=== PATIENT | male | born 1965 | race Caucasian/White ===

== ENCOUNTER 2022-10-27 19:24 | Emergency (ER) | payer MEDICARE, OTHER ==
[~2022-10-27] VITALS: Ht 200.7 cm; Wt 88.9 kg
--- NOTE | 2022-10-27 19:42 | NUR ---
BIBRA 7 FOR C/O CP X 7 DAYS. HX USING METH. PT A/OX3. TOLERATING R/A WELL WITH NO RESP DISTRESS. CONNECTED PT TO POX AND MONITOR. SAFETY MEASURES IN PLACE.
--- NOTE | 2022-10-27 20:07 | NUR ---
GARDENER FLORIST AT PT'S BEDSIDE
--- NOTE | 2022-10-27 20:18 | NUR ---
lab at bedside
--- NOTE | 2022-10-27 20:30 | NUR ---
PT REFUSED BLOOD DRAW
--- NOTE | 2022-10-27 21:13 | NUR ---
HOT METAL MIXER OPERATOR HELPER AT PT'S BEDSIDE
[2022-10-27 21:25] LABS: BASOPHILS % (AUTO) 0.3 % (0.0-2.0); EOSINOPHILS % (AUTO) 2.3 % (0.0-6.0); HEMATOCRIT 40 % (39-51); HEMOGLOBIN 11.6 g/dL (13.5-17.5); LYMPHOCYTES # (AUTO) 0.9 K/uL (0.8-4.8); LYMPHOCYTES % (AUTO) 11.2 % (20.0-44.0); MEAN CORPUSCULAR HGB CONC 29 g/dl (31.0-36.0); MEAN CORPUSCULAR VOLUME 69 fL (80-96); MONOCYTES # (AUTO) 0.6 K/uL (0.1-1.30); MONOCYTES % (AUTO) 7.6 % (2.0-12.0); NEUTROPHILS # (AUTO) 6.5 K/uL (1.8-8.9); NEUTROPHILS % (AUTO) 78.6 % (43.0-81.0); PLATELET COUNT (AUTO) 235 K/uL (150-450); WHITE BLOOD COUNT (AUTO) 8.3 K/uL (4.3-11.0)
[2022-10-27] MEDS ORDERED: FUROSEMIDE 40 MG/4 ML VIAL IV ONE (21:30)
[2022-10-27] MEDS ORDERED: ASPIRIN 325 MG TABLET PO ONE (21:30)
--- NOTE | 2022-10-27 21:31 | NUR ---
PT REFUSED IV ACCESS AND LASIX; DR NIYAH LOPEZ AWARE
[2022-10-27 21:33] LABS: CALCIUM, SERUM 8.5 mg/dL (8.5-10.1); CARBON DIOXIDE 30 mmol/L (21-32); CHLORIDE 107 mmol/L (98-107); GLUCOSE 85 mg/dL (74-106); SODIUM SERUM 140 mmol/L (136-145); UREA NITROGEN, BLOOD 13 mg/dL (7-18)
[2022-10-27] MEDS ORDERED: FUROSEMIDE 40 MG/4 ML VIAL ONE (21:42)
[2022-10-27] MEDS ORDERED: ASPIRIN 325 MG TABLET ONE (21:42)
[2022-10-27 22:53] LABS: LYMPHOCYTES % (MANUAL) 28 % (16-48); MONOCYTES % (MANUAL) 8 % (0-11.0); NEUTROPHILS % (MANUAL) 64 (42-76)
[2022-10-28] MEDS ORDERED: MORPHINE SULFATE INJ 2 MG/ML DISP.SYRIN IV PRN (01:00)
[2022-10-28] MEDS ORDERED: ONDANSETRON HCL/PF 4 MG/2 ML VIAL IVP PRN (01:00)
[2022-10-28] MEDS ORDERED: TEMAZEPAM 15 MG CAPSULE PO PRN (01:00)
[2022-10-28] MEDS ORDERED: ACETAMINOPHEN 325 MG TABLET PO PRN (01:00)
[2022-10-28] MEDS ORDERED: Z GUARD REMEDY 4 OZ OINT TP PRN (01:00)
[2022-10-28] MEDS ORDERED: HYDROCODONE/APAP 5/325MG TABLET PO PRN (01:00)
[2022-10-28] MEDS ORDERED: ENOXAPARIN SODIUM 40 MG/0.4 ML DISP.SYRIN SQ SCH (01:00)
[2022-10-28] MEDS ORDERED: MAG HYDROX/AL HYDROX/SIMETH 30 ML UDC PO PRN (01:00)
[2022-10-28] MEDS ORDERED: MAGNESIUM HYDROXIDE 30 ML UDC PO PRN (01:00)
[2022-10-28] MEDS ORDERED: NITROGLYCERIN 0.4 MG/TAB BOTTLE SL PRN (01:00)
--- NOTE | 2022-10-28 01:10 | NUR ---
COVID ANTIGEN SWAB COLLECTED AND SENT TO LAB. ATTEMPTED TO IV ACCESS. PT REFUSED.
--- NOTE | 2022-10-28 01:15 | NUR ---
SHAREE CANAS DNP AWARE PT REFUSED IV ACCESS.
[2022-10-28 03:34] VITALS: BP 164/87
--- NOTE | 2022-10-28 05:13 | NUR ---
SALES AND OPERATIONS TRAINEE AT PT'S BEDSIDE
--- NOTE | 2022-10-28 05:42 | NUR ---
Patient eloped from facility. Arie Louie DNP notified.
[2022-10-28] MEDS ORDERED: PANTOPRAZOLE 40 MG TABLET.DR PO SCH (07:30)
[2022-10-28] MEDS ORDERED: FUROSEMIDE 40 MG/4 ML VIAL IV SCH (09:00)
[2022-10-28] MEDS ORDERED: ASPIRIN 81 MG TAB.CHEW PO SCH (09:00)
== END 2022-10-28 05:52 | disposition left against medical advice (07) ==
LOC: ER 19:31
DX: I21.4 Non-ST elevation (NSTEMI) myocardial infarction (principal); Z59.00 Homelessness unspecified; F17.200 Nicotine dependence, unspecified, uncomplicated; F20.9 Schizophrenia, unspecified; Z88.1 Allergy status to other antibiotic agents; Z88.8 Allergy status to other drugs, medicaments and biological substances; Z91.018 Allergy to other foods; I50.9 Heart failure, unspecified; Z20.822 Contact with and (suspected) exposure to COVID-19
CPT/HCPCS: 99285; 71045; 93005; 85025; 80048; 36415; 84484 ×2; 83880; 87426; 87081; 85007; J1940; C9803

== ENCOUNTER 2022-10-28 19:33 | Emergency (ER) | payer OTHER ==
[~2022-10-28] VITALS: Ht 200.7 cm; Wt 88.9 kg
--- NOTE | 2022-10-28 19:57 | NUR ---
BIBRA 99 FOR C/O CP. PT WAS ELOPED FROM [facility] ER THIS MORNING. A/OX 3. TOLERATING R/A AT 98%.BLE EDEMA NOTED. CONNECTED PT TO POX AND MONITOR. SAFETY MEASURES IN PLACE.
[2022-10-28] MEDS ORDERED: FUROSEMIDE 40 MG/4 ML VIAL IV ONE (20:30)
[2022-10-28] MEDS ORDERED: IV NS 0.9% 1,000 ML BAG IV ONE (20:30)
--- NOTE | 2022-10-28 20:35 | NUR ---
DETECTIVE PRECINCT AT PT'S BEDSIDE
--- NOTE | 2022-10-28 20:39 | NUR ---
MYSQL DEVELOPER AT PT'S BEDSIDE
--- NOTE | 2022-10-28 21:08 | NUR ---
EXTRUSION DIE TEMPLATE MAKER AT PT'S BEDSIDE
--- NOTE | 2022-10-28 21:11 | NUR ---
ASSISTED LIVING ASSOCIATE NOT ABLE TO DRAW BLOOD; DR. ZHAO LOPEZ AWARE AND DISCUSSING CARE WITH PT.
--- NOTE | 2022-10-28 21:22 | NUR ---
COVID ANTIGEN SWAB COLLECTED AND SENT TO LAB
--- NOTE | 2022-10-28 21:34 | NUR ---
DR. ZHAO LOPEZ ATTEMPTED TO GIVE PT IV ACCESS. PT REFUSED AND WITNESSED WITH RN
--- NOTE | 2022-10-28 21:50 | NUR ---
Patient does not wish to proceed with medical care recommended by Dr. Mike LOPEZ. Patient given information related to possible complications, up to and including , which could occur as a result of leaving the hospital at this time. Patient verbalizes understanding of risks involved due to leaving against medical advice. Patient has refused to sign AMA form; Dr. Mike LOPEZ aware. AMA via wheelchair and escorted by security.
[2022-10-28 23:08] VITALS: BP 157/91
== END 2022-10-28 21:50 | disposition left against medical advice (07) ==
LOC: ER 19:44
DX: I50.9 Heart failure, unspecified (principal); R07.9 Chest pain, unspecified; F20.9 Schizophrenia, unspecified; F17.200 Nicotine dependence, unspecified, uncomplicated; Z88.1 Allergy status to other antibiotic agents; Z88.8 Allergy status to other drugs, medicaments and biological substances; Z59.00 Homelessness unspecified
CPT/HCPCS: 71045-TC